=== PATIENT | female | born 1950 ===

== ENCOUNTER 2024-02-21 09:51 | Emergency (ER) | payer OTHER ==
[2024-02-21] MEDS ORDERED: ACETAMINOPHEN TAB 500 MG TAB ONE (10:55)
[2024-02-21] MEDS ORDERED: AMOXIC-POT CLAV 875-125MG 1 EACH TAB ONE (10:55)
[2024-02-21] MEDS ORDERED: LIDOCAINE 1% INJ 10MG/ML (20 ML MDV) ONE (10:55)
[2024-02-21] MEDS ORDERED: IBUPROFEN 800 MG TAB ONE (10:55)
[2024-02-21] MEDS ORDERED: DIPH,PERTUS(ACELL)TETVAC-LF 0.5 ML VIAL IM ONE (10:55)
== END 2024-02-21 13:30 | disposition home or self-care (01) ==
LOC: EC 09:51
CPT/HCPCS: 12001; 90471; 90715; 99283

== ENCOUNTER 2024-02-26 22:27 | Emergency (ER) | payer MEDICARE, OTHER ==
[2024-02-26 22:41] VITALS: RESP 16; TEMP 98.3
--- NOTE | 2024-02-27 00:44 | ED ---
General Adult HPI - General Chief complaint: Wound/Laceration Stated complaint: R Hand Dog Bite Revisit Time Seen by Provider: 02/26/24 22:43 Source: patient Mode of arrival: ambulatory Limitations: no limitations - History of Present Illness Initial comments: 74-year-old female presenting for reevaluation of a dog bite. Patient had a dog bite 6 days ago and was seen at our facility. She had some sutures applied to the right thumb and was started on Augmentin. She states that today she noticed that her thumb and part of her hand were quite swollen. She was concerned for possible infection. She denies any drainage from the wound. No fevers. No redness. - Related Data Allergies Allergy/AdvReac Type Severity Reaction Status Date / Time No Known Allergies Allergy Verified 02/26/24 22:35 Review of Systems ROS Statement: Those systems with pertinent positive or pertinent negative responses have been documented in the HPI. ROS Other: All systems not noted in ROS Statement are negative. Past Medical History Past Medical History: Hyperlipidemia, Hypertension History of Any Multi-Drug Resistant Organisms: None Reported Past Surgical History: Section Additional Past Surgical History / Comment(s): Bilat knee replacements, Past Psychological History: No Psychological Hx Reported Smoking Status: Never smoker Past Alcohol Use History: Occasional Past Drug Use History: None Reported General Exam Limitations: no limitations General appearance: alert, in no apparent distress Head exam: Present: atraumatic, normocephalic, normal inspection Eye exam: Present: normal appearance, EOMI Neck exam: Present: normal inspection. Absent: meningismus Respiratory exam: Absent: respiratory distress Cardiovascular Exam: Present: regular rate Right Hand Wrist exam: Present: full ROM, swelling. Absent: tenderness, erythema Neurological exam: Present: alert, oriented X3 Psychiatric exam: Present: normal affect, normal mood Skin exam: Present: warm, dry Course Vital Signs 02/26/24 02/27/24 22:35 00:58 Temperature 98.3 F Pulse Rate 81 77 Respiratory 16 16 Rate Blood Pressure 155/77 168/75 O2 Sat by Pulse 100 96 Oximetry Medical Decision Making - Medical Decision Making Was pt. sent in by a medical professional or institution (Dr. PA, JAVA MANAGER, urgent care, hospital, or intermediate...) When possible be specific @ -No Did you speak to anyone other than the patient for history (EMS, parent, family, police, friend...)? What history was obtained from this source @ -No Did you review nursing and triage notes (agree or disagree)? Why? @ -I reviewed and agree with nursing and triage notes Were old charts reviewed (outside hosp., previous admission, EMS record, old EKG, old radiological studies, urgent care reports/EKG's, intermediate records)? Report findings @ -No old charts were reviewed Differential Diagnosis (chest pain, altered mental status, abdominal pain women, abdominal pain men, vaginal bleeding, weakness, fever, dyspnea, syncope, headache, dizziness, GI bleed, back pain, seizure, CVA, palpatations, mental health, musculoskeletal)? @ -Differential includes posttraumatic swelling, infection, this is not an all- inclusive list EKG interpreted by me (3pts min.). @ -As above X-rays interpreted by me (1pt min.). @ -X-ray shows no acute fracture or subluxation CT interpreted by me (1pt min.). @ -None done U/S interpreted by me (1pt. min.). @ -None done What testing was considered but not performed or refused? (CT, X-rays, U/S, labs)? Why? @ -None What meds were considered but not given or refused? Why? @ -None Did you discuss the management of the patient with other professionals (professionals i.e. , PA, JAVA MANAGER, lab, RT, psych nurse, social worker palliative care, phototypesetter operator, teacher, service officer, case planner)? Give summary @ -No Was smoking cessation discussed for >3mins.? @ -No Was critical care preformed (if so, how long)? @ -No Were there social determinants of health that impacted care today? How? (Homelessness, low income, unemployed, alcoholism, drug addiction, transportation, low edu. Level, literacy, decrease access to med. care, [facility], rehab)? @ -No Was there de-escalation of care discussed even if they declined (Discuss DNR or withdrawal of care, Hospice)? DNR status @ -No What co-morbidities impacted this encounter? (DM, HTN, Smoking, COPD, CAD, Cancer, CVA, ARF, Chemo, Hep., AIDS, mental health diagnosis, sleep apnea, morbid obesity)? @ -None Was patient admitted / discharged? Hospital course, mention meds given and route, prescriptions, significant lab abnormalities, going to OR and other pertinent info. @ -73-year-old female presented with chief complaint of swelling to her right thumb and hand after sustaining a dog bite 6 days ago. She was seen at our facility the wound was cleansed, laceration repaired, and started on Augmentin. On exam there is some swelling to the palm and adjacent hand, however there is no erythema or warmth to the area. The swelling appears consistent with trauma. Patient is taking her antibiotics as prescribed. X-ray was obtained which showed no acute fracture or subluxation. Patient is instructed on wound care and alarm symptoms that should prompt reevaluation. At this time the swelling does not appear to be infectious in nature. Discharged home. Follow-up with PCP. Report back to ER with any new or worsening symptoms. Discussed return parameters and answered all questions. Patient conveyed verbal understanding and agreed to the plan. I discussed this case in detail with my attending Dr. Clark Undiagnosed new problem with uncertain prognosis? @ -No Drug Therapy requiring intensive monitoring for toxicity (Heparin, Nitro, Insulin, Cardizem)? @ -No Were any procedures done? @ -No Diagnosis/symptom? @ -Healing wound Acute, or Chronic, or Acute on Chronic? @ -Acute Uncomplicated (without systemic symptoms) or Complicated (systemic symptoms)? @ -Uncomplicated Side effects of treatment? @ -No Exacerbation, Progression, or Severe Exacerbation? @ -No Poses a threat to life or bodily function? How? (Chest pain, USA, PA, pneumonia, PE, COPD, DKA, ARF, appy, cholecystitis, CVA, Diverticulitis, Homicidal, Suicidal, threat to staff... and all critical care pts) @ -No Disposition Clinical Impression: Healing wound Disposition: HOME SELF-CARE Condition: Good Instructions (If sedation given, give patient instructions): Animal Bite (ED) Additional Instructions: Follow-up with your PCP. Report back to ER with any new or worsening symptoms. Continue taking your antibiotics. Is patient prescribed a controlled substance at d/c from ED?: No Referrals: Ashley Robertson MD [Primary Care Provider] - 1-2 days Time of Disposition: 00:44
[2024-02-27 00:59] VITALS: BP 168/75; PULSE 77
--- NOTE | 2024-02-27 02:59 | XR ---
EXAM: XR Right Hand Complete, 3 or More Views CLINICAL HISTORY: ITS.REASON XR Reason: prev dog bite TECHNIQUE: Frontal, lateral and oblique views of the right hand. COMPARISON: No relevant prior studies available. FINDINGS: Bones/joints: Diffuse osseous demineralization. No acute fracture or subluxation. Soft tissues: Unremarkable. No radiopaque foreign body. IMPRESSION: No acute fracture or subluxation.
== END 2024-02-27 00:58 | disposition home or self-care (01) ==
LOC: EC 22:27
DX: T81.30XA Disruption of wound, unspecified, initial encounter (principal)
CPT/HCPCS: 99283